=== PATIENT | female | born 1960 | race Caucasian/White ===

== ENCOUNTER 2018-10-30 08:28 | Day surgery (SDC) | payer OTHER ==
[2018-10-27 17:15] VITALS: Ht 171.4 cm; Wt 102.5 kg
[~2018-10-30] VITALS: Ht 171.4 cm; Wt 102.5 kg
[2018-10-30] VITALS (11 sets, daily range): BP systolic 115–147; BP diastolic 74–88; PULSE 66–78; RESP 12–38
[2018-10-30] MEDS ORDERED: ASPI-903 PO (09:25)
[2018-10-30] MEDS ORDERED: LORA1TAB PO (09:32)
[2018-10-30] MEDS ORDERED: NITR0.4T32 SL (09:32)
[2018-10-30] MEDS ORDERED: NITR1PAT TD (09:32)
[2018-10-30] MEDS ORDERED: DIVA-16 PO (09:32)
[2018-10-30] MEDS ORDERED: METO-319 PO (09:32)
[2018-10-30] MEDS ORDERED: CLOP75TA19 PO (09:32)
[2018-10-30] MEDS ORDERED: HYDR-4011 PO (09:32)
[2018-10-30] MEDS ORDERED: NORE1TAB8 PO (09:32)
[2018-10-30] MEDS ORDERED: LEVO100T8 PO (09:32)
[2018-10-30] MEDS ORDERED: LYRI100 PO (09:32)
[2018-10-30] MEDS ORDERED: ATOR-2 PO (09:32)
[2018-10-30] MEDS ORDERED: ERGO500013 PO (09:35)
[2018-10-30] MEDS ORDERED: PHEN100C PO (09:35)
[2018-10-30] MEDS ORDERED: QUET50TA PO (09:35)
[2018-10-30] MEDS ORDERED: LACTATED RINGER'S 1,000 ML IV* SCH (10:00)
[2018-10-30] MEDS ORDERED: CEFAZOLIN 2 GM/50 ML (PMX) 50 ML IVPB SCH (10:00)
[2018-10-30] MEDS ORDERED: BUPIVACAINE 0.5% (SDV) 30 ML INJ ONE (10:32)
[2018-10-30] MEDS ORDERED: LIDOCAINE 1% (MPF) 30 ML INJ ONE (10:32)
[2018-10-30] MEDS ORDERED: POLYMYXIN/BACITRACIN 1L IRRIG ONE (10:33)
--- NOTE | 2018-10-30 10:33 | PREAC ---
Date/Time of Note Date/Time of Note DATE: 10/30/18 TIME: 10:30 Anesthesia Eval and Record Evaluation Time Pre-Procedure Interview DATE: 10/30/18 TIME: 10:30 Age 58 Sex female NPO: 8 hrs Preoperative diagnosis radial fracture Planned procedure ORIF radius Past Medical History Past Medical History: Includes Cardio: VT Endo: Hypothyroid Neuro: Seizure disorder GI: Obesity Surgery & Anesthesia Issues No known issue Meds Anticoagulation: No Beta Dylon within 24 hr: No Reason Beta Dylon not given: Pt. not on B-Dylon Reported Medications Ergocalciferol (Vitamin D2) (VITAMIN D2) 50,000 Unit Capsule, 36912 UNIT PO WEEKLY, CAP Fridays10/30/18 Quetiapine Fumarate* (Seroquel*) 50 Mg Tablet, 50 MG PO HS, TAB 10/30/18 Phenytoin* Sodium Extended (Dilantin*) 100 Mg Capsule, 200 MG PO BID, CAP 10/30/18 Hydrocodone/Acetaminophen (Palacios 5-325 Tablet) 1 Each Tablet, 1 TAB PO TID PRN for PAIN LEVEL 7-10, TAB 10/30/18 Nitroglycerin* (Nitroglycerin* Patch) 0.4 mg/hr Patch, 1 PATCH TD DAILY, PATCH 10/30/18 Nitroglycerin* (Nitroglycerin* SL) 0.4 Mg Tab.subl, 0.4 MG SL Q5MIN PRN for CHEST PAIN, BOTTLE 10/30/18 Metoprolol Succinate* (Toprol XL*) 50 Mg Tab.er.24h, 50 MG PO DAILY, #30 TAB 10/30/18 Pregabalin* (Lyrica*) 100 Mg Capsule, 100 MG PO BID, CAP 10/30/18 Lorazepam* (Lorazepam*) 1 Mg Tablet, 1 MG PO Q8 PRN for ANXIETY, #60 TAB 10/30/18 Levothyroxine Sodium* (Levothyroxine Sodium*) 100 Mcg Tablet, 100 MCG PO BEFORE BREAKFAST, #30 TAB 10/30/18 Norethind Ac/Ethinyl Estradiol (JINTELI 1 MG-5 MCG TABLET) 1 Each Tablet, 1 TAB PO DAILY, TAB 10/30/18 Divalproex Sodium* (Divalproex Sodium*) 500 Mg Tablet.dr, 500 MG PO TID, #90 TAB 10/30/18 Clopidogrel Bisulfate* (Clopidogrel Bisulfate*) 75 Mg Tablet, 75 MG PO DAILY, #30 TAB 10/30/18 Atorvastatin* (Atorvastatin*) 80 Mg Tablet, 80 MG PO QHS, #30 TAB 10/30/18 Aspirin* (Aspirin* Chew) 81 Mg Tab.chew, 81 MG PO DAILY, TAB.CHEW 10/30/18 Current Medications Lactated Ringer's 1,000 ml @ 0 mls/hr Q0M IV* ; Start 10/30/18 at 10:00; Stop 10/30/18 at 20:00 Cefazolin Sodium/ Dextrose 50 ml @ 100 mls/hr PRE-OP IVPB ; Start 10/30/18 at 10:00 Meds reviewed: Yes Allergies Coded Allergies: No Known Drug Allergies (Verified Allergy, Unknown, 10/30/18) Allergies Reviewed: Yes Labs/Studies Labs Reviewed: Reviewed by anesthesiologist test: N/A Pre-procedure Exam Airway: Adequate mouth opening, Adequate thyromental dist Mallampati: Mallampati IV Teeth: Normal Lung: Normal Heart: Normal ASA Physical Status ASA physical status: 3 Emergency: None Pre-operative Attestations Prior to commencing anesthesia and surgery, the patient was re-evaluated, there was verification of: *The patient's identity *The results of appropriate recent lab work and preoperative vital signs *The above evaluation not changing prior to induction *Anesthetic plan, risk benefits, alternative and complications discussed with patient/family; questions answered; patient/family understands, accepts and wishes to proceed. SARAH BARRAGAN DO Oct 30, 2018 10:33
[2018-10-30] MEDS ORDERED: LIDOCAINE 2% (SDV) 5 ML INJ ONE (10:39)
[2018-10-30] MEDS ORDERED: ROCURONIUM 50 MG INJ ONE (10:39)
[2018-10-30] MEDS ORDERED: PROPOFOL 20 ML ONE (10:39)
[2018-10-30] MEDS ORDERED: MIDAZOLAM 1 MG/ML 2 ML INJ ONE (10:39)
[2018-10-30] MEDS ORDERED: DEXAMETHASONE 4 MG/ML 5 ML INJ ONE (10:43)
[2018-10-30] MEDS ORDERED: ROPIVACAINE 0.5 % 30 ML VIAL ONE (10:43)
--- NOTE | 2018-10-30 10:49 | HPN ---
Date/Time of Note Date/Time of Note DATE: 10/30/18 TIME: 10:49 Interval H&P Admission Note Pt. seen H&P reviewed: No system changes OLEKSANDR MURPHY Oct 30, 2018 10:49
[2018-10-30] MEDS ORDERED: HYDROmorphONE 1 MG/5 ML IV SYRINGE IV PRN (11:00)
[2018-10-30] MEDS ORDERED: CEFAZOLIN 1 GM INJ ONE (11:36)
[2018-10-30] MEDS ORDERED: ONDANSETRON 4 MG INJ ONE (11:37)
--- NOTE | 2018-10-30 12:38 | OPPN ---
Date/Time of Note Date/Time of Note DATE: 10/30/18 TIME: 12:37 Operative Report Preoperative Diagnosis Right distal radius fracture, intra-articular, greater than 3 fragments Right carpal tunnel syndrome Postoperative Diagnosis Right distal radius fracture, intra-articular, greater than 3 fragments Right carpal tunnel syndrome Operation/Procedure Performed Right distal radius fracture, intra-articular, greater than 3 fragments ORIF Right carpal tunnel release Surgeon see signature line assistive technology trainer none Anesthesia: general Estimated blood loss: 0 - 10 ml's Transfusion Required none Specimen none Grafts/Implants none Complications none OLEKSANDR MURPHY Oct 30, 2018 12:38
[2018-10-30] MEDS ORDERED: morphine 10 MG INJ ONE (12:48)
[2018-10-30] MEDS ORDERED: KETOROLAC 30 MG INJ ONE (12:51)
--- NOTE | 2018-10-30 12:59 | PAC ---
Date/Time of Note Date/Time of Note DATE: 10/30/18 TIME: 12:58 Post-Anesthesia Notes Post-Anesthesia Note Last documented vital signs 147/76 70 98% 98.5 14 Activity: WNL Respiratory function: WNL Cardiovascular function: WNL Mental status: Baseline Pain reasonably controlled: Yes Hydration appropriate: Yes Nausea/Vomiting absent: Yes SARAH BARRAGAN DO Oct 30, 2018 12:59
[2018-10-30] MEDS ORDERED: DIPHENHYDRAMINE 50 MG INJ ONE (13:08)
[2018-10-30] MEDS: HYDROmorphONE 1 MG/5 ML IV SYRINGE IV PRN ×2 (13:17→13:28)
[2018-10-30] MEDS ORDERED: HYDROCODONE/APAP (10/325) TAB PO PRN (13:30)
[2018-10-30] MEDS ORDERED: DIPHENHYDRAMINE 50 MG INJ IV PRN (13:30)
--- NOTE | 2018-10-30 14:58 | OPR ---
DATE OF OPERATION: 10/30/2018 SURGEON: Oleksandr Willis MD ANESTHESIA: General plus peripheral nerve block. PREOPERATIVE DIAGNOSES: 1. Right distal radius fracture, intra-articular, greater than 3 fragments. 2. Right carpal tunnel syndrome. POSTOPERATIVE DIAGNOSES: 1. Right distal radius fracture, intraarticular, greater than 3 fragments. 2. Right carpal tunnel syndrome. PROCEDURES: 1. Open reduction and internal fixation right distal radius fracture, intra-articular, greater than 3 fragments. 2. Right carpal tunnel release, open. 3. Lengthening of the right wrist brachioradialis tendon. OPERATIVE FINDINGS: 1. Subacute right distal radius fracture, intra-articular, with callus formation, shortening and dis placement. 2. Swelling within the right carpal canal. INDICATION FOR PROCEDURE: A 58-year-old female with injury to the right wrist. She was seen in [facility] and diagnosed with displaced distal radius fracture. She also had numbness. We discussed the opt ions and the patient elected to proceed with surgical intervention, understanding risks and benefits. DESCRIPTION OF PROCEDURE: The patient was seen in the preoperative area and all further questions we re answered. Again, she gave informed consent, understanding risks and benefits. The patient was ta jamir to operative suite and placed in supine position. A peripheral nerve block was performed by the anesthesia team and patient was placed under general anesthesia. A tourniquet was placed in the righ t upper extremity. The right upper extremity was prepped with ChloraPrep stick and draped in usual s terile fashion. Ancef 2 grams IV were given. An Esmarch bandage was used to exsanguinate the extrem ity and tourniquet was inflated to 250 mmHg. Attention was first turned to the distal radius in a mo dified volar Malcom approach to the distal radius was utilized with sharp dissection carried down thro [facility] skin and subcutaneous tissue. The FCR sheath was incised and FCR tendon was retracted ulnarly. The FCR subsheath was incised and FPL tendon was retracted ulnarly. The pronator quadratus was eleva denise off its radial and distal borders using Bovie electrocautery. The fracture was identified. Ther e was significant callus formation as well as shortening and displacement. The fracture fragments we re mobilized using a [place] elevator as well as an osteotome. The fracture was brought out to length and a Medartis volar distal radius plate was placed across the fracture site. Two cortical screws we re placed proximally and this brought the fracture out to better length. The 3 proximal rows of the distal screws were placed to add further length and alignment. Additional locking screws were placed distally. An additional locking screw was placed proximally. X-ray imaging showed appropriate hard herrera placement and bony alignment. Wound was copiously irrigated. Skin was closed with 4-0 nylon. Attention was turned to the carpal tunnel and 2 cm incision at the base of the palm was utilized with sharp dissection carried down through skin and subcutaneous tissue. The palmar aponeurosis was inci sed along its ulnar border and retractors were deepened. The transverse carpal ligament was incised on its ulnar border approximately 3 mm radial to the hook of the hamate. Retractors were placed prox imally and distally. The proximal and distal to the transverse carpal ligament were divided under di rect visualization. Wound was copiously irrigated and skin was closed with 4-0 nylon. Of note in or paul to achieve reduction of the distal radius fracture and bring the radial styloid fragment into a m ore anatomic position, lengthening of the brachioradialis tendon was performed using 15-blade knife a nd Bovie electrocautery. Xeroform was placed to the wounds followed by sterile gauze, Webril and jennifer rt arm splint. Tourniquet was deflated after 42 minutes. The patient was awakened from anesthesia. She was taken to postoperative suite in stable condition, tolerated procedure well without complicat ion. SPECIMENS: None. ESTIMATED BLOOD LOSS: 5 mL. COUNTS: Sponge, instrument, needle counts were correct. TOURNIQUET TIME: 42 minutes. CONDITION ON DISCHARGE: Stable. The patient was given a nonrefillable 5-day prescription for pain medication for surgery today. Dictated By: OLEKSANDR DORANTES/DELMI Conf#: [id number] DID#: [id number]
== END 2018-10-30 15:01 | disposition home or self-care (01) ==
LOC: SDS 08:28
PROVIDERS: ATTEND Orthopaedic Surgery Hand Surgery
DX: S52.571D Other intraarticular fracture of lower end of right radius, subsequent encounter for closed fracture with routine healing (principal); X58.XXXD Exposure to other specified factors, subsequent encounter; G56.01 Carpal tunnel syndrome, right upper limb
CPT/HCPCS: 64721; 73110; C1713; J0690; J1100; J1170; J1200; J1885; J2250; J2270; J2405; J2795; J3010